=== PATIENT | female | born 1980 | race Caucasian/White ===

== ENCOUNTER 2017-06-18 10:57 | Emergency (ER) | payer BC, OTHER ==
[~2017-06-18] VITALS: Ht 167.6 cm; Wt 126.1 kg
--- NOTE | ~2017-06-18 | EKG ---
[place] [address] [facility] [employer] [place] [address] ELECTROCARDIOGRAM REPORT Name: ABRIL REYES Room #: DEP [facility]#: [id number] Admission: 06/18/17 Attend Phys: Discharge: 06/18/17 Date of : 76 Report #: [id number] THIS REPORT FOR: //name// [facility] ED Test Date: 2017-06-18 Test Time: 11:11:40 Pat Name: ABRIL MCCRACKENGOMERY Department: Room: Gender: F Perch Mender: CORNELIO : 1980 Requested By: Elinor Jensen Order Number: [id number] MD: Blayne Mclean Measurements Intervals [place] Rate: 74 P: 29 MT: 152 QRS: -18 QRSD: 95 T: 33 QT: 391 QTc: 434 Interpretive Statements Sinus rhythm Borderline left axis deviation Borderline T abnormalities, anterior leads No previous ECG available for comparison Electronically Signed On 06-18-2017 17:12:05 CDT by Blayne Mclean [email or web address] <ELECTRONICALLY SIGNED> By: Blayne Mclean MD 06/18/17 1712 1111 [id number] Blayne Mclean MD /KANDACE
[~2017-06-18 10:57] MED LIST: HYDROCODONE-AP1 EAC6 PO; VALIUM5 MG PO
[2017-06-18 12:03] LABS: ABSOLUTE NEUTROPHILS 10.2 thou/uL (1.4-8.2); BASOPHILS 0.7 % (0.0-2.0); EOSINOPHILS 0.1 % (0.0-3.0); HEMOGLOBIN 14.4 gm/dL (12.0-15.0); LYMPHOCYTES 17.5 % (24.0-44.0); MCH 26.7 pg (26.0-34.0); MCHC 33.6 g/dL (28.0-37.0); MCV 79.5 fL (80.0-100.0); MONOCYTES 7.1 % (1.0-8.0); PLATELET COUNT 315 thou/uL (150-400); POLYS 74.6 % (36.0-66.0); RDW 14.9 % (10.5-14.5); WBC 13.6 thou/uL (4.0-11.0)
[2017-06-18 12:25] LABS: ANION GAP 7 mmol/L (7-16); BUN 16 mg/dL (7-18); CALCIUM 9.5 mg/dL (8.5-10.1); CHLORIDE 104 mmol/L (98-107); CO2 28 mmol/L (21-32); GLUCOSE 95 mg/dL (74-106); POTASSIUM 3.7 mmol/L (3.5-5.1); SODIUM 139 mmol/L (136-145); TROPONIN-I < 0.04 ng/mL (<0.06)
[2017-06-18] MEDS ORDERED: HYDROCODONE-AP1 EAC6 PO (13:09)
[2017-06-18] MEDS ORDERED: PREDNISONE 10 M10 MG PO (13:09)
[2017-06-18] MEDS ORDERED: NORFLEX100 MG PO (13:09)
[2017-06-18 13:24] VITALS: BP 162/78
== END 2017-06-18 13:25 | disposition home or self-care (01) ==
LOC: ER 10:57
PROVIDERS: Emergency Medicine
DX: R07.9 Chest pain, unspecified (principal); M54.12 Radiculopathy, cervical region